=== PATIENT | male | born 1975 | race Two or more races ===

== ENCOUNTER 2018-09-09 10:18 | Emergency (ER) | payer BC ==
[~2018-09-09] VITALS: Ht 167.6 cm; Wt 98.3 kg
[2018-09-09 10:28] VITALS: BP 139/80
[2018-09-09] MEDS ORDERED: IBUPROFEN 200 MG TABLET PO ONE (12:00)
[2018-09-09] MEDS ORDERED: METHOCARBAMOL 750 MG TABLET PO ONE (12:00)
[2018-09-09] MEDS ORDERED: IBUPROFEN 800 MG TABLET ONE (12:16)
[2018-09-09] MEDS ORDERED: METHOCARBAMOL 750 MG TABLET ONE (12:16)
[2018-09-09] MEDS ORDERED: SODIUM CHLORIDE FLUSH 10ML SYR IVF ONE (14:00)
[2018-09-09] MEDS ORDERED: OXYcodone/APAP 5/325MG TABLET PO ONE (14:00)
[2018-09-09] MEDS ORDERED: GADOBUTROL 10 MMOL/10 ML PFS ONE (14:14)
[2018-09-09 14:21] LABS: MEAN CORPUSCULAR HEMOGLOBIN 28.4 pg (27.5-34.5); MEAN CORPUSCULAR HGB CONC 32.8 g/dL (33.2-36.2); MEAN CORPUSCULAR VOLUME 86.5 fL (81-97); MEAN PLATELET VOLUME 8.9 fL (7.4-10.4); PLATELET COUNT 260 x10^3/uL (130-400); RED BLOOD COUNT 4.91 x10^6/uL (4.38-5.82); RED CELL DISTRIBUTION WIDTH 14.1 % (9.4-14.8)
[2018-09-09 14:32] LABS: ANION GAP 8 mmol/L (5-15); CALCIUM 8.7 mg/dL (8.5-10.1); CHLORIDE 103 mmol/L (98-107); CREATININE 0.65 mg/dL (0.7-1.3)
[2018-09-09 14:58] LABS: BASOPHILS # (AUTO) 0.01 x10^3/uL (0-0.1); BASOPHILS % (AUTO) 0 % (0-1); EOSINOPHILS # (AUTO) 0.04 x10^3/uL (0-0.4); EOSINOPHILS % (AUTO) 0 % (1-7); LYMPHOCYTES # (AUTO) 2.38 x10^3/uL (1-3.4); LYMPHOCYTES % (AUTO) 16 % (22-44); MONOCYTES # (AUTO) 2.07 x10^3/uL (0.2-0.8); MONOCYTES % (AUTO) 14 % (2-9); NEUTROPHILS # (AUTO) 10.31 x10^3/uL (1.8-6.8); NEUTROPHILS % (AUTO) 70 % (42-75)
[2018-09-09 14:59] LABS: MD SCAN
[2018-09-09] MEDS ORDERED: OXYcodone/APAP 5/325MG TABLET ONE (15:17)
== END 2018-09-09 16:23 | disposition home or self-care (01) ==
LOC: ED 11:38
DX: M54.42 Lumbago with sciatica, left side (principal); E11.9 Type 2 diabetes mellitus without complications
CPT/HCPCS: 36415; 72158; 80048; 82040; 85025; 93971; 99284; A9585